=== PATIENT | female | born 1940 | race Caucasian/White ===

== ENCOUNTER → 2025-05-12 | Outpatient (CLI) | payer MEDICARE, MEDICAID | LOC: M RAD 13:39 | PROVIDERS: ATTEND Nurse Practitioner Family | DX: N13.30 Unspecified hydronephrosis (principal) ==

== ENCOUNTER 2025-06-16 06:17 | Day surgery (SDC) | payer MEDICARE, MEDICAID ==
[~2025-06-16] VITALS: Ht 154.9 cm; Wt 80.7 kg
[~2025-06-16 06:17] MED LIST: B-12100010 PO; ECOT81TA5 PO; IRON65TA2 PO; LEVO150T7 PO; LISI20TA33 PO; META0.52 PO; METF10004 PO; OCUV1CAP4 PO; SIMV40TA20 PO; SUPE5000 PO; VITA-243 PO; VITA100093 PO; ZINC100T3 PO
[2025-06-16] MEDS ORDERED: LR 1,000 ML IV SCH (06:40)
[2025-06-16] MEDS ORDERED: MIDAZOLAM INJ 2 MG/2 ML VIAL As Ordered ONE (07:21)
[2025-06-16] MEDS ORDERED: LIDOCAINE 2% 100 MG/5 ML SDV (FOR ANES.) As Ordered ONE (07:21)
[2025-06-16] MEDS ORDERED: dexAMETHasone 4 MG/ML 1 ML VIAL As Ordered ONE (07:21)
[2025-06-16] MEDS ORDERED: ONDANSETRON 4MG 2ML VIAL As Ordered ONE (07:21)
[2025-06-16] MEDS: ceFAZolin SOD 2 GM IV ONCE IV ONE (07:50)
[2025-06-16] MEDS ORDERED: ACETAMINOPHEN 1000MG/100ML IV BAG As Ordered ONE (08:12)
[2025-06-16] MEDS: ISOVUE-M 300 61% 15 ML VIAL As Ordered ONE (08:40)
[2025-06-16] MEDS: ISOVUE-300 61% 100 ML VIAL As Ordered ONE (09:11)
[2025-06-16] MEDS ORDERED: ONDANSETRON 4MG 2ML VIAL IV PRN (09:15)
[2025-06-16 11:29] VITALS: BP 183/72; TEMP 96.2; O2SAT 98
== END 2025-06-16 11:35 | disposition home or self-care (01) ==
LOC: M SDC 06:17
PROVIDERS: ATTEND Urology
DX: D09.0 Carcinoma in situ of bladder (principal); I10 Essential (primary) hypertension; E78.5 Hyperlipidemia, unspecified; E03.9 Hypothyroidism, unspecified; E11.9 Type 2 diabetes mellitus without complications; R60.9 Edema, unspecified; D64.9 Anemia, unspecified; Z88.8 Allergy status to other drugs, medicaments and biological substances; Z79.82 Long term (current) use of aspirin; Z79.84 Long term (current) use of oral hypoglycemic drugs; Z79.899 Other long term (current) drug therapy
CPT/HCPCS: 52356; 74420; 88108; 88305; C1769; C1894; C2617; J0131; J0690; J1100; J2250; J2405; J3010; Q9967

== ENCOUNTER 2025-08-17 06:06 | Inpatient (IN) | payer MEDICARE, MEDICAID ==
[~2025-08-17] VITALS: Ht 154.9 cm; Wt 82.9 kg
[2025-08-17] VITALS (7 sets, daily range): BP systolic 134–153; BP diastolic 60–75; TEMP 96.8–97.5; O2SAT 95–99
[~2025-08-17 06:06] MED LIST changes: +ACET-897 PO; +LOPE-39 PO; +MV-M1TAB13 PO; +MYLA41.6 PO
[2025-08-17] MEDS ORDERED: LIDOCAINE 2% 100 MG/5 ML SDV (FOR ANES.) As Ordered ONE (07:08)
[2025-08-17] MEDS ORDERED: SUGAMMADEX SODIUM 200 MG/2 ML VIAL As Ordered ONE (07:08)
[2025-08-17] MEDS ORDERED: ROCURONIUM BROMIDE 50MG/5ML VIAL As Ordered ONE (07:08)
[2025-08-17] MEDS ORDERED: dexAMETHasone 4 MG/ML 1 ML VIAL As Ordered ONE (07:09)
[2025-08-17] MEDS ORDERED: ONDANSETRON 4MG 2ML VIAL As Ordered ONE (07:09)
[2025-08-17] MEDS ORDERED: MIDAZOLAM INJ 2 MG/2 ML VIAL As Ordered ONE (07:15)
[2025-08-17] MEDS ORDERED: GLUCOSE 4 GM CHEW PO PRN ×2 (07:35→07:40)
[2025-08-17] MEDS ORDERED: GLUCAGON INJ 1 MG VIAL SC PRN ×2 (07:35→07:40)
[2025-08-17] MEDS ORDERED: PERCOCET 5MG/325MG TAB PO PRN (07:35)
[2025-08-17] MEDS ORDERED: DEXTROSE 50% 50 ML SYRINGE IV PRN ×2 (07:35→07:40)
[2025-08-17] MEDS ORDERED: ACETAMINOPHEN 325 MG TAB PO PRN (07:35)
[2025-08-17] MEDS: INSULIN LISPRO (NovoLOG) PER UNIT SC PRN (07:46)
[2025-08-17] MEDS ORDERED: ETOMIDATE 20 MG/10 ML VIAL As Ordered ONE (07:58)
[2025-08-17 08:03] LABS: PLATELET COUNT, AUTOMATED 267 10^3/uL (150-450)
[2025-08-17] MEDS: ceFAZolin SOD 2 GM IV ONCE IV ONE (08:09)
[2025-08-17] MEDS: DOCUSATE SODIUM 100 MG CAPSULE PO SCH (09:00)
[2025-08-17] MEDS ORDERED: ACETAMINOPHEN 1000MG/100ML IV BAG As Ordered ONE (10:20)
[2025-08-17] MEDS ORDERED: HYDROmorphone HCL 2 MG/ML 1 ML VIAL As Ordered ONE (11:01)
[2025-08-17] MEDS: INSULIN LISPRO (NovoLOG) PER UNIT SC SCH ×2 (12:00→20:53)
[2025-08-17] MEDS ORDERED: MORPHINE 4 MG/ML 1 ML VIAL IV PRN (12:05)
[2025-08-17] MEDS: LIDOCAINE 1% SDV 30 ML VIAL As Ordered ONE (12:05)
[2025-08-17] MEDS ORDERED: INSULIN LISPRO (NovoLOG) PER UNIT SC PRN (12:40)
[2025-08-17] MEDS: HYDROMORPHONE HCL 0.5 MG/0.5 ML SYRINGE IV PRN ×2 (12:53)
[2025-08-17] MEDS: ONDANSETRON 4MG 2ML VIAL IV PRN (12:53)
[2025-08-17 13:16] LABS: PLATELET COUNT, AUTOMATED 207 10^3/uL (150-450)
[2025-08-17] MEDS: NS (Normal Saline) 0.9% 1,000 ML IV SCH (13:29)
[2025-08-17 13:35] LABS: CALCIUM LEVEL 8.5 MG/DL (8.3-10.6); CARBON DIOXIDE LEVEL 23.0 MMOL/L (20-31); CHLORIDE LEVEL 103.0 MMOL/L (98-107); CREATININE FOR GFR 1.71 MG/DL (0.55-1.30); GLOMERULAR FILTRATION RATE 29.4 (>32); POTASSIUM SERUM 5.3 MMOL/L (3.5-5.1); SODIUM LEVEL 135.0 MMOL/L (136-145)
[2025-08-17] MEDS ORDERED: HOME MED LIST COMPLETE! XX SCH (15:30)
[2025-08-17] MEDS: SIMVASTATIN 40 MG TAB PO SCH (15:52)
[2025-08-17] MEDS: ceFAZolin SOD 1 GM in DEXTROSE 5% (D5W) ADV/MINI-BAG 50 ML IV SCH (16:54)
[2025-08-17] MEDS: MORPHINE 4 MG/ML 1 ML VIAL IV PRN (18:09)
[2025-08-18 00:28] VITALS: BP 120/56; TEMP 97.9; O2SAT 96
[2025-08-18] MEDS: PERCOCET 5MG/325MG TAB PO PRN ×2 (02:50→10:11)
[2025-08-18 04:36] VITALS: BP 109/43; TEMP 98.1; O2SAT 94
[2025-08-18] MEDS: LEVOTHYROXINE 150 MCG TABLET (0.15 MG) PO SCH (05:57)
[2025-08-18 08:00] VITALS: BP 128/54; TEMP 98.1; O2SAT 94
[2025-08-18 08:13] LABS: PLATELET COUNT, AUTOMATED 216 10^3/uL (150-450)
[2025-08-18 08:36] LABS: CALCIUM LEVEL 7.9 MG/DL (8.3-10.6); CARBON DIOXIDE LEVEL 22.0 MMOL/L (20-31); CHLORIDE LEVEL 106.0 MMOL/L (98-107); CREATININE FOR GFR 1.8 MG/DL (0.55-1.30); GLOMERULAR FILTRATION RATE 27.6 (>32); POTASSIUM SERUM 4.5 MMOL/L (3.5-5.1); SODIUM LEVEL 138.0 MMOL/L (136-145)
[2025-08-18 10:12] VITALS: BP 128/54
[2025-08-18 12:00] VITALS: BP 128/54; TEMP 97.7; O2SAT 97
[2025-08-18] MEDS ORDERED: COLA100C5 PO (12:21)
[2025-08-18] MEDS ORDERED: PERCOCET PO (12:21)
[2025-08-18] MEDS ORDERED: CIPR-250 PO (13:03)
== END 2025-08-18 16:24 | disposition home or self-care (01) | DRG 658 ==
LOC: M OR 06:06 → M MSPAV 14:24
PROVIDERS: ADMIT Urology; ATTEND Urology
PROC: 8E0W4CZ Robotic Assisted Procedure of Trunk Region, Percutaneous Endoscopic Approach (ICD-10-PCS; 2025-08-17)
PROC: 0TT14ZZ Resection of Left Kidney, Percutaneous Endoscopic Approach (ICD-10-PCS; principal; 2025-08-17 07:30)
DX: C66.2 Malignant neoplasm of left ureter (principal); E03.9 Hypothyroidism, unspecified; E11.9 Type 2 diabetes mellitus without complications; I10 Essential (primary) hypertension